=== PATIENT | female | born 1980 | race Caucasian/White ===

== ENCOUNTER 2017-02-21 08:00 | Inpatient (IN) | payer OTHER ==
[2017-02-21] MEDS ORDERED: ONDANSETRON DISINTEGRATING 4 MG TAB PO PRN (12:40)
[2017-02-21] MEDS ORDERED: NS 1,000 ML IV SCH (12:45)
[2017-02-21 14:18] LABS: % IMMATURE GRANULYOCYTES 0.5 % (0.0-1.1); ABSOLUTE IMMATURE GRANULOCYTES 0.05 10^3/uL (0.00-0.10); ADD DIFF? NO; ADD MORPH? NO; ADD SCAN? NO; ATYPICAL LYMPHOCYTE FLAG 10 (0-99); FRAGMENT RBC FLAG 0 (0-99); HEMATOCRIT 36.4 % (38.0-47.0); HEMOGLOBIN 12.3 g/dL (12.6-16.3); LEFT SHIFT FLG 0 (0-99); LIPEMIA HEMOLYSIS FLAG 90 (0-99); MEAN CELL HEMOGLOBIN 29.6 pg (27.9-34.1); MEAN CELL HEMOGLOBIN CONCENTR. 33.8 g/dL (32.4-36.7); MEAN CELL VOLUME 87.7 fL (81.5-99.8); MEAN PLATELET VOLUME 10.1 fL (8.7-11.7); PLATELET CLUMPS FLAG 0 (0-99); PLATELET COUNT 228 10^3/uL (150-400); RED BLOOD CELL COUNT 4.15 10^6/uL (4.18-5.33); RED CELL DISTRIBUTION WIDTH 13.2 % (11.5-15.2)
[2017-02-21 14:32] LABS: ANION GAP 11 mEq/L (8-16); CALCIUM 8.1 mg/dL (8.5-10.4); CARBON DIOXIDE 21 mEq/l (22-31); CHLORIDE 107 mEq/L (97-110); CREATININE 0.7 mg/dL (0.6-1.0); GLOMERULAR FILTRATION RATE > 60; GLUCOSE 113 mg/dL (70-100); POTASSIUM 3.9 mEq/L (3.5-5.2); SODIUM 139 mEq/L (134-144)
--- NOTE | 2017-02-21 14:37 | GHP ---
[f rep st] HISTORY AND PHYSICAL DATE OF ADMISSION: 02/21/2017 CHIEF COMPLAINT: Bilateral flank pain. HISTORY OF PRESENT ILLNESS: This is a 36-year-old female with a history of nephrolithiasis and urete rolithiasis since childhood, who presents after developing acute left-sided flank pain. The patient underwent imaging that confirmed the presence of bilateral ureteral stones. The patient was being ma naged on outpatient medications, but had developed right-sided pain, and in addition contacted her ou tpatient neurologist, who brought the patient in for hospitalization, pain control, and preparation f or surgical intervention. The patient denies any subjective fevers or chills. Denies nausea or vomi ting. Reports the pain. Denies constipation, diarrhea, dysuria or hematuria. Denies palpitations, shortness of breath, headache or dysphagia. PAST MEDICAL HISTORY: Recurrent nephrolithiasis. SOCIAL HISTORY: Mother of 4. No tobacco, alcohol or illicit drugs. FAMILY HISTORY: Positive for nephrolithiasis. REVIEW OF SYSTEMS: A 10-point review of systems is negative, with the exception of that reported in the HPI. PHYSICAL EXAMINATION: VITAL SIGNS: Blood pressure is 99/69, heart rate 86, respiratory rate 16, 95% on room air, temperature 36.7. GENERAL: This is a very pleasant, healthy-appearing, young female i n no acute distress. HEENT: Notable for dry mucous membranes. Eye exam is negative for any icterus . CARDIAC: The patient is regular rate and rhythm. PULMONARY: She is clear to auscultation bilate rally. GASTROINTESTINAL: Positive bowel sounds. ABDOMEN: Soft. She is nontender to palpation in all 4 quadrants. MUSCULOSKELETAL: Negative for any lower extremity edema. SKIN: Negative for any rashes. NEUROLOGIC: The patient is alert and oriented x3. PSYCHIATRIC: She is pleasant and nathaniel ative on interview and examination. DATA: The patient had CT imaging that confirmed the presence of a right proximal stone with mild hyd ronephrosis, as well as a left proximal ureteral stone with minimal hydronephrosis. Stone analysis p erformed in 2016 shows 60% calcium oxalate, 40% calcium phosphate. Creatinine last checked with her previous hospitalization was normal at 0.8. ASSESSMENT AND PLAN: This is a 36-year-old female with recurrent ureterolithiasis presenting with pa in. 1. Acute bilateral ureterolithiasis with mild hydronephrosis. Will admit. Place on IV fluids, Flom ax, pain medications, and Toradol. Creatinine is normal. The patient can eat today and will be n.p. o. after midnight tonight. With the history of recurrent urinary tract infections, we will empirical ly place her on ceftriaxone at this time per Urology's request. 2. Mild bilateral hydronephrosis. Will check renal function and plan for urologic intervention in t he morning. 3. Prophylaxis. The patient is young and ambulating. No Lovenox for surgical intervention tomorrow . 4. Diet regular, then n.p.o. after midnight. DISPOSITION: I expect less than 2 midnights if she responds well to supportive care and has a succes sful urologic procedure. I have discussed the case with Urology. Will admit in preparation for procedure tomorrow. /[id number]/MODL
[2017-02-21] MEDS: KETOROLAC 15 MG/1 ML SDV IVP SCH ×2 (16:53→22:31)
[2017-02-21] MEDS: ACETAMINOPHEN 325 MG TAB PO PRN (18:23)
[2017-02-21] MEDS ORDERED: DOCUSATE SODIUM 100 MG CAP PO ONE (19:30)
[2017-02-21] MEDS: ONDANSETRON 4 MG/2 ML VIAL IVP PRN ×2 (20:31→23:45)
[2017-02-21] MEDS: TAMSULOSIN HCL 0.4 MG CAP PO SCH (20:35)
[2017-02-21] MEDS: HYDROmorphONE/DILAUDID 1 MG/ML INJ IVP PRN ×2 (20:43→23:46)
[2017-02-21] MEDS: HYDROCODONE/APAP 5/325 TAB PO PRN (23:46)
[2017-02-22] MEDS: ACETAMINOPHEN 325 MG TAB PO PRN ×2 (03:54→17:45)
[2017-02-22] MEDS: HYDROCODONE/APAP 5/325 TAB PO PRN ×3 (03:54→17:42)
[2017-02-22] MEDS: KETOROLAC 15 MG/1 ML SDV IVP SCH ×4 (04:30→22:49)
[2017-02-22] MEDS ORDERED: LIDOCAINE 2% JELLY 20 ML (UROJECT) ONE (07:28)
[2017-02-22] MEDS ORDERED: IOPAMIDOL (ISOVUE-M 300) 15 ML VIAL ONE ×2 (07:28→09:28)
--- NOTE | 2017-02-22 07:57 | PDANEPAE ---
ANE History of Present Illness ureteroscopy for ureteral calculi. ANE Past Medical History - Cardiovascular History Hx Hypertension: No - Pulmonary History Hx COPD: No Hx Asthma/Reactive Airway Disease: No Hx Oxygen in Use at Home: No Hx Sleep Apnea: No Sleep Apnea Screening Result - Last Documented: Negative - Endocrine History Hx Diabetes: No Hypothyroid: No Obesity: no - Renal History Hx Renal Disorders: Yes Renal History Comment: nephrolythiasis - GI History GERD: no - Chronic Pain History Chronic Pain: No ANE Review of Systems Review of Systems: - Exercise capacity METS (RN): 4 METS ANE Patient History - Allergies Allergies/Adverse Reactions: morphine Allergy (Verified 02/21/17 13:14) Anxiety promethazine [From Phenergan] Allergy (Verified 02/21/17 13:14) Anxiety - Home Medications Home Medications: Cephalexin [Keflex (*)] 500 mg PO TID 02/21/17 [Last Taken 02/21/17] Herbals/Supplements -Info Only 1 ea PO DAILY 02/21/17 [Last Taken 02/21/17] Hydrocodone/Acetaminophen [[place] 5/325 (*)] 1 each PO PRN PRN 02/21/17 [Last Taken 02/21/17] Ketorolac Tromethamine [Toradol] 10 mg PO TID 02/21/17 [Last Taken 02/21/17] Ondansetron [Zofran Odt] 8 mg PO PRN PRN 02/21/17 [Last Taken Unknown] Tamsulosin HCl [Flomax 0.4 MG (*)] 0.4 mg PO HS 02/21/17 [Last Taken 02/20/17] - NPO status NPO Since - Liquids (Date): 02/22/17 NPO Since - Liquids (Time): 00:00 NPO Since - Solids (Date): 02/22/17 NPO Since - Solids (Time): 00:00 - Anes Hx Anes Hx: post operative nausea and vomiting Hx Anesthesia Complications (with details): patient has had several GA's without problems, patient had N/V after last GA which she says may also have been due to IV morphine - Smoking Hx Smoking Status: Never smoked Marijuana use: No - Alcohol Use Alcohol Use: None - Family Anes Hx Family Anes Hx: none ANE Labs/Vital Signs - Labs Result Diagrams: 02/21/17 14:02 02/21/17 14:02 - Vital Signs Blood Pressure: 106/69 Heart Rate: 97 Respiratory Rate: 16 O2 Sat (%): 94 Height: 175.26 cm Weight: 63.4 kg ANE Physical Exam - Airway Neck exam: FROM Mallampati Score: Class 3 - Pulmonary Pulmonary: clear to auscultation - Cardiovascular Cardiovascular: regular rate and rhythym - ASA Status ASA Status: II ANE Anesthesia Plan Anesthesia Plan: general endotracheal anesthesia (GA vs RA discussed. Patient prefers GA. Questions answered.)
[2017-02-22] MEDS ORDERED: SCOPOLAMINE HYDROBROMIDE 1 MG/3 DAYS PATCH TD ONE ×2 (07:58→07:59)
[2017-02-22] MEDS ORDERED: MIDAZOLAM 2 MG/2 ML VIAL IVP ONE ×2 (08:05→08:15)
[2017-02-22] MEDS ORDERED: PROPOFOL 200 MG/20 ML VIAL ONE (08:12)
[2017-02-22] MEDS ORDERED: fentaNYL 100 MCG/2 ML INJ ONE ×4 (08:13→10:37)
[2017-02-22] MEDS ORDERED: MIDAZOLAM 2 MG/2 ML VIAL ONE (08:21)
[2017-02-22] MEDS ORDERED: ONDANSETRON 4 MG/2 ML VIAL ONE (08:54)
[2017-02-22] MEDS ORDERED: DEXAMETHASONE 4 MG/ML VIAL ONE (08:54)
[2017-02-22] MEDS ORDERED: Herbals/Supplements -Info Only PO SCH (09:00)
--- NOTE | 2017-02-22 09:08 | HOSPPROG ---
Hospitalist Progress Note Assessment/Plan: # Bilateral Ureterolithiasis - s/p cystoscopy with Dr. Banda this morning. # UTI - urine culture with Klebsiella. Patient is now on Bactrim PO. # Bilateral Hydronephrosis - anticipate improvement after surgery. # Bowel/Bladder - bowel regimen if constipation develops. # DVT prophylaxis - low risk as ambulatory and with just having cystoscopy this morning I recommend holding any lovenox or heparin. # Dispo - likely today or tomorrow. Subjective: No major pain complaints. Seems to be reasonably comfortable after surgery this morning. No subjective fevers this morning but she did have them last evening. We discussed possible discharge this evening versus tomorrow morning. Objective: Vital Signs Temp Pulse Resp BP Pulse Ox 37.0 C 97 16 106/69 94 02/22/17 07:33 02/22/17 08:08 02/22/17 08:08 02/22/17 08:08 02/22/17 08:08 Laboratory Results 02/21/17 14:02 02/21/17 14:02 02/21/17 02/22/17 02/23/17 05:59 05:59 05:59 Intake Total 881 Output Total 300 Balance 881 -300 - Physical Exam Constitutional: no apparent distress, appears nourished, not in pain Cardiovascular: regular rate and rhythym, no murmur, rub, or gallop Respiratory: no respiratory distress, no rales or rhonchi, clear to auscultation Gastrointestinal: normoactive bowel sounds, soft, non-tender abdomen, no palpable masses Genitourinary: No baig in urethra ICD10 Worksheet Patient Problems: Problems Problem Status Onset Hydronephrosis Acute UTI (urinary tract infection) Acute Ureterolithiasis Acute - ICD10 Problem Qualifiers (1) Ureterolithiasis (2) Hydronephrosis Qualifiers: Hydronephrosis type: with renal calculous obstruction Qualified Code(s): N13.2 - Hydronephrosis with renal and ureteral calculous obstruction (3) UTI (urinary tract infection) Qualifiers: Urinary tract infection type: acute cystitis
[2017-02-22] MEDS ORDERED: PHENYLEPHRINE HCL 100 MCG/ML SYR ONE (09:12)
[2017-02-22] MEDS ORDERED: ROCURONIUM 50 MG/5 ML VIAL ONE (09:42)
[2017-02-22] MEDS ORDERED: KETOROLAC 30 MG/1 ML SDV ONE (09:56)
[2017-02-22] MEDS ORDERED: NEOSTIGMINE METHYLSULFATE 3 MG/3 ML SYR ONE (09:58)
[2017-02-22] MEDS ORDERED: GLYCOPYRROLATE 0.2 MG/1 ML VIAL ONE (09:58)
[2017-02-22] MEDS ORDERED: fentaNYL 100 MCG/2 ML INJ IVP PRN (10:17)
[2017-02-22] MEDS ORDERED: NALOXONE HCL 0.4 MG/ML INJ IVP PRN (10:17)
--- NOTE | 2017-02-22 10:18 | POSTOPPROG ---
Post Op Note Date of Operation: 02/22/17 Surgeon: Favian Banda (# [id number]) Anesthesia: GET(General Endotracheal) Pre-op Diagnosis: Bilateral ureterolithiasis Post-op Diagnosis: Bilateral proximal ureterolithiasis Procedure: Bilateral ureteroscopy w/ laser lithotripsy & ureteral stent placement Findings: See op note Inf/Abcess present in the surg proc area at time of surgery?: No EBL: Minimal (< 10 cc) Complications: None Drains: Other (4.7 Fr. x 24 cm left ureteral stent 4.7 Fr. x 22 cm right ureteral stent) Specimen(s): Left ureteral calculus fragment Text Box - Additional Text Additional Text: She could probably be discharged home later this afternoon if she remains afebrile. I will discharge her on Bactrim DS x 7 days (for treatment of Klebsiella UTI noted on 02/20 urine culture), [place] prn, and Uribel --- Rx's on chart. She will need to FU in my office in 2 weeks for removal of ureteral stents.
[2017-02-22] MEDS ORDERED: HYDROmorphONE/DILAUDID 1 MG/ML INJ ONE (10:37)
[2017-02-22] MEDS: HYDROmorphONE/DILAUDID 1 MG/ML INJ IVP PRN ×7 (10:41→22:24)
--- NOTE | 2017-02-22 10:42 | POSTANESTH ---
Post Anesthetic Evaluation Cardiovascular Status: Normal, Stable Respiratory Status: Normal, Stable Level of Consciousness/Mental Status: Can Participate in Eval Pain Control: Adequate, Prn Tx Ordered Nausea/Vomiting Control: Adequate, Prn Tx Ordered Complications Possibly Related to Anesthesia: None Noted
[2017-02-22] MEDS ORDERED: PHENAZOPYRIDINE HCL 200 MG TAB ONE (10:59)
[2017-02-22] MEDS: PHENAZOPYRIDINE HCL 200 MG TAB PO SCH ×3 (11:01→22:23)
--- NOTE | 2017-02-22 11:27 | GOP ---
[f rep st] OPERATIVE REPORT DATE OF OPERATION: 02/22/2017 SURGEON: Favian Banda MD ANESTHESIA: General endotracheal. PREOPERATIVE DIAGNOSIS: 1. Symptomatic bilateral proximal ureteral calculi. 2. Urinary tract infection. POSTOPERATIVE DIAGNOSIS: 1. Symptomatic bilateral proximal ureteral calculi. 2. Urinary tract infection. 3. Bilateral nephrolithiasis. PROCEDURE PERFORMED: 1. Cystourethroscopy, bilateral retrograde pyelography. 2. Left ureteroscopy with holmium laser calculus lithotripsy and basket extraction. 3. Right ureteroscopy and flexible nephroscopy with holmium laser calculus lithotripsy. 4. Bilateral ureteral stent placement (4.7-Comoran x 24 cm on left, 4.7-[place] x 22 cm on right). FINDINGS: 1. Bilateral proximal ureteral calculi. 2. Multiple remaining right renal calculi that were addressed as above. The right calyceal urothelium was also notable for multiple submucosal calcified plaques, consistent with extensive nephrocalcinosis. SPECIMENS: Left ureteral calculus fragment. INDICATIONS: This woman was admitted yesterday evening with symptoms related to intractable renal colic as well as a low-grade fever from probable UTI. She presents at this time for operative management. There has been no evidence of sepsis. The indications for the procedures as well as potential risks and complications were discussed with the patient preoperatively. She appeared to understand, her questions were answered, and she wished to proceed. Written informed surgical consent was thereafter obtained. DESCRIPTION OF PROCEDURE: The patient was brought to the operating room and administered general endotracheal anesthesia. She was carefully placed in the dorsal lithotomy position on the cystoscopic table. The genital area was sterilely prepped with Betadine scrub and paint, then draped in usual sterile fashion. Cystoscopy was performed with a 30-degree lens through a 22-Comoran sheath. Urethra and bladder were unremarkable. Ureteral orifices were normal in regard to shape and position along the trigone. A 5-Comoran open-ended ureteral catheter was used to perform retrograde pyelography on the left side. This revealed a filling defect at about the L4 level of the proximal ureter with mild proximal hydronephrosis and hydroureter. This was consistent with the location of the calculus seen on preoperative imaging. I then carefully passed a 0.035-inch hydrophilic guidewire up the left ureter until it was seen within the renal collecting system fluoroscopically. The entire length of the ureter distal to the calculus was dilated with 2 separate inflations and deflations of a 10 cm balloon by maintaining a pressure of 16 atmospheres for about 4 minutes. The balloon dilator and cystoscope were then removed while keeping the guidewire in place. Semirigid ureteroscopy was performed alongside the guidewire. The calculus was seen within the proximal ureter. A 365 micron holmium laser fiber was used to fragment this calculus into minute pieces. There was 1 dominant fragment remaining, and this was removed unremarkably with a tipless stone basket. It was sent to Pathology for chemical analysis. The ureteroscope was withdrawn, and the cystoscope was back-loaded over the guidewire. A 4.7-Comoran x 24 cm hydrophilic ureteral stent was advanced over the guidewire until it was properly positioned as seen fluoroscopically in the kidney and cystoscopically in the bladder. I then turned my attention to the right side. Retrograde pyelogram was again performed through the 5-Comoran open-ended ureteral catheter. This revealed a filling defect in about the exact same location on this side with moderate proximal hydronephrosis and hydroureter. No other obvious filling defects were appreciated. I advanced the 0.035-inch hydrophilic guidewire up the right ureter until it was seen within the renal collecting system fluoroscopically. I then dilated the entire length of the ureter distal to the calculus as was performed on the left side with a 10 cm balloon. Upon doing this, however, the stone did appear to migrate fluoroscopically from the ureter and into the kidney. After completing the balloon dilation process, the cystoscope was removed and semirigid ureteroscopy was performed alongside the guidewire. The ureteroscope was advanced to the renal pelvis, and no calculi were seen within the ureter. I then decided to proceed with flexible ureteroscopy and nephroscopy. A 0.035-inch superstiff Amplatz guidewire was advanced through the ureteroscope and into the renal collecting system. The ureteroscope was withdrawn, thereby keeping [address] Under active fluoroscopy, a 35 cm hydrophilic ureteral access sheath was advanced over the Amplatz guidewire until the proximal aspect was at the ureteropelvic junction. The inner obturator and Amplatz guidewire were then removed, thereby keeping the outer access sheath and 2nd guidewire in place. Flexible ureteroscopy was performed through the ureteral access sheath. I identified 1 dominant calculus in the renal pelvis, which was likely the calculus that was present in the ureter previously, and I ablated it with a 200 micron holmium laser fiber until no fragments were larger than approximately 1 mm. I then examined some of the remaining calyces. A few other smaller calculi were seen in at least 2 separate calices in the midpole and upper pole. I used the same 200 micron fiber to ablate these calculus fragments into minute pieces. None of these fragments were removed. They were all small enough that I felt confident they would be able to spontaneously pass around the ureteral stent. The ureteroscope and ureteral access sheath were then removed in tandem. There was minimal trauma to the ureter. The cystoscope was back-loaded over the remaining guidewire, and a 4.7-Comoran x 22 cm hydrophilic ureteral stent advanced over this guidewire until it was properly positioned as seen fluoroscopically in the kidney and cystoscopically in the bladder. The bladder was then drained of all return which was clear. The instruments were removed, and 20 cc of 2% lidocaine injected transurethrally for postoperative analgesic purposes. The patient was also given Toradol 15 mg IV at approximately 10 a.m. to also assist with postoperative analgesia. The patient was then awakened, extubated, transferred to her bed, then taken to the recovery room. She tolerated the procedure well overall. The patient was also given a dose of Rocephin 1 g IV at 0900. Her preoperative urine culture from 02/20 was actually positive for Klebsiella. COMPLICATIONS: None. DISPOSITION: She was transferred to the recovery room in stable condition. If she does well throughout the day today, namely not experiencing any symptoms or signs suggestive of advancing infection, then she can be discharged later today as per hospitalist discretion. I will have prescriptions on the chart for Bactrim DS 1 b.i.d. for 7 days (to treat her Klebsiella UTI) as well as Uribel and [place] p.r.n. pain. She should follow up in my office in 2 weeks for removal of her ureteral stents. /[id number]/MODL MTDD
--- NOTE | 2017-02-22 13:53 | ASMTCASEMG ---
Living Arrangements What is your living Answers: With Spouse arrangement? Who do you live with? Type Of Residence What kind of residence do Answers: House you live in? Case Management Evaluation Functional: Able to Answers: Yes return Home with Prior Level of Function/Care Discharge Plan Comments Coordination Status Comments Notes: Patient admitted for possible surgical intervention of Kidney stone. Case management will continue to follow. Date Signed: 02/22/2017 01:52 PM Electronically Signed By:MIGUEL Biggs
--- NOTE | 2017-02-22 13:55 | ASMTCMCOM ---
CM Note CM Note Notes: patient having surgery today for bilateral kidney stones. Probable discharge later today of tomorrow, Friday. Date Signed: 02/22/2017 01:55 PM Electronically Signed By:MIGUEL Biggs
[2017-02-22] MEDS: LORazepam 0.5 MG TAB PO PRN (16:25)
[2017-02-22] MEDS ORDERED: ERTAPENEM 1 GM in NS 100 ML IV SCH (18:30)
[2017-02-22] MEDS ORDERED: NS 1,000 ML IV ONE ×2 (18:30→21:35)
[2017-02-22 19:24] LABS: BILIRUBIN,TOTAL 0.7 mg/dL (0.1-1.4)
[2017-02-22] MEDS: ONDANSETRON 4 MG/2 ML VIAL IVP PRN (19:28)
[2017-02-22] MEDS: NS 1,000 ML IV SCH (20:20)
[2017-02-22] MEDS: TAMSULOSIN HCL 0.4 MG CAP PO SCH (20:20)
[2017-02-22] MEDS: SULFAMETHOX/TMP 800/160 MG 1 TAB PO SCH ×2 (22:23→22:49)
[2017-02-23] MEDS: ONDANSETRON 4 MG/2 ML VIAL IVP PRN ×4 (00:35→22:10)
[2017-02-23] MEDS: HYDROmorphONE/DILAUDID 1 MG/ML INJ IVP PRN ×4 (00:35→10:47)
[2017-02-23] MEDS ORDERED: NS 1,000 ML IV ONE (02:50)
[2017-02-23] MEDS: HYDROCODONE/APAP 5/325 TAB PO PRN ×3 (03:20→22:04)
--- NOTE | 2017-02-23 03:23 | HOSPPROG ---
Hospitalist Progress Note Assessment/Plan: Hospitalist Night Float Note Paged by RN regarding patient drop in BP. Has had soft SBPs 90s since arrival to floor. HR now WNL down from 100s. Patient BP apparently checked while patient receiving dose of dilaudid. no dyspnea, chest pain. some lightheadedness with ambulation to bathroom. Patient admitted for nephrolithiasis and pyelonephritis. lactate WNL. Pain not quite controlled but improved per patient. VS reviewed. Labs reviewed. Gen - NAD. patient lays in bed. appears acutely ill but nontoxic. at bedside. CV - RRR. no m/r/g. Resp - CTA-b diminished at bases. no wheezing/rhonchi/rales. Abd - mildly distended but soft. + BS. TTP mid/lower abdomen. Ext - moves all. Neuro - nonfocal. Plan - 1 liter NS bolus now. repeat BPs. If continues to decline or does not respond to fluid transfer to unit. Objective: Vital Signs Temp Pulse Resp BP Pulse Ox 36.7 C 83 14 86/59 L 97 02/23/17 02:31 02/23/17 02:31 02/23/17 02:31 02/23/17 02:31 02/23/17 02:31 Laboratory Results 02/21/17 14:02 02/21/17 14:02 02/21/17 02/22/17 02/23/17 05:59 05:59 05:59 Intake Total 881 2060 Output Total 0855 Balance 881 -295 ICD10 Worksheet Patient Problems: Problems Problem Status Onset Ureterolithiasis Acute Hydronephrosis Acute UTI (urinary tract infection) Acute
[2017-02-23] MEDS: NS 1,000 ML IV SCH ×2 (04:02→13:52)
[2017-02-23 04:46] LABS: % IMMATURE GRANULYOCYTES 1.1 % (0.0-1.1); ABSOLUTE IMMATURE GRANULOCYTES 0.09 10^3/uL (0.00-0.10); ADD DIFF? NO; ADD MORPH? NO; ADD SCAN? NO; ATYPICAL LYMPHOCYTE FLAG 0 (0-99); FRAGMENT RBC FLAG 0 (0-99); HEMATOCRIT 31.6 % (38.0-47.0); HEMOGLOBIN 10.3 g/dL (12.6-16.3); LEFT SHIFT FLG 10 (0-99); LIPEMIA HEMOLYSIS FLAG 80 (0-99); MEAN CELL HEMOGLOBIN 29.6 pg (27.9-34.1); MEAN CELL HEMOGLOBIN CONCENTR. 32.6 g/dL (32.4-36.7); MEAN CELL VOLUME 90.8 fL (81.5-99.8); MEAN PLATELET VOLUME 10.4 fL (8.7-11.7); PLATELET CLUMPS FLAG 0 (0-99); PLATELET COUNT 144 10^3/uL (150-400); RED BLOOD CELL COUNT 3.48 10^6/uL (4.18-5.33); RED CELL DISTRIBUTION WIDTH 13.3 % (11.5-15.2)
[2017-02-23 04:59] LABS: ANION GAP 9 mEq/L (8-16); CALCIUM 6.7 mg/dL (8.5-10.4); CARBON DIOXIDE 21 mEq/l (22-31); CHLORIDE 113 mEq/L (97-110); CREATININE 0.7 mg/dL (0.6-1.0); GLOMERULAR FILTRATION RATE > 60; GLUCOSE 126 mg/dL (70-100); POTASSIUM 4.2 mEq/L (3.5-5.2); SODIUM 143 mEq/L (134-144)
[2017-02-23] MEDS: KETOROLAC 15 MG/1 ML SDV IVP SCH ×4 (05:13→22:04)
[2017-02-23 05:59] LABS: IONIZED CALCIUM 1.04 MMOL/L (1.12-1.30)
[2017-02-23 06:16] LABS: ALBUMIN 2.1 g/dL (3.5-5.0); BILIRUBIN,TOTAL 0.4 mg/dL (0.1-1.4); BILIRUBIN-UNCONJUGATED 0.4 mg/dL (0.0-1.1); MAGNESIUM 1.6 mg/dL (1.6-2.3); TOTAL PROTEIN 4.1 g/dL (6.3-8.2)
--- NOTE | 2017-02-23 08:14 | PDMN ---
Medical Necessity Medical necessity: C/M review: Pt. meets INPT criteria under MCG M-300 Pyelonephritis, acute; Acute pyelonephritis, acute and persistent hypotension S/ P 02/22/2017 surgery bilateral ureteroscopy with laser lithotripsy, bilateral ureteral stent placement for bilateral proximal nephrolithiasis with hydronephrosis, postop 02/22/17 17:46 PM 39.4 temp spike, BP initially 107/73 decreased to 98/66, total 3L NS bolus given, BP 83/63 requiring transfer to ICU 02/23/2017 04:14 AM, ongoing IV NS 150 ml/hr. IV Ertapenem QD, IV Ketorolac Q 6 hrs., IV Dilaudid, frequent VS, comorbid hx recurrent nephrolithiasis. MD anticipates > 2 MN LOS for ongoing med nec for eval and TX of above.
[2017-02-23] MEDS ORDERED: PATCH REMOVAL 1 EA PATCH TD ONE (08:15)
--- NOTE | 2017-02-23 08:25 | HOSPPROG ---
Hospitalist Progress Note Assessment/Plan: DIAGNOSES: -acute sepsis with ongoing hypotension, currently ongoing fluid resuscitation -complicated urinary tract infection, mostly sensitive Klebsiella in culture -obstructive kidney stones, status post stenting PLANS: -continue ICU care -continue current fluid resuscitation and follow hemodynamics closely -will change antibiotic to rocephin Reviewed with Dr. Raj Marcos, also seen on multidisciplinary rounds Will review with Dr. Ovalle he arrived SUBJECTIVE: Still with nausea and some flank pain No dyspnea OBJECTIVE Vitals reviewed: Remains hypotensive at this time, no current fever T-max 39.4degrees, pulse good respirations good Cyber Systems Administrator, my review: Sinus rhythm Exam: alert oriented skin warm dry color ok capillary refill okay at this time resps not labored lungs clear BSs heart regular abd soft nondistended nontender, bowel sounds present limbs warm, no edema iv site ok Renal function stable Objective: Vital Signs Temp Pulse Resp BP Pulse Ox 36.8 C 74 16 82/60 L 99 02/23/17 05:18 02/23/17 06:22 02/23/17 06:00 02/23/17 06:22 02/23/17 06:22 Laboratory Results 02/23/17 04:38 02/23/17 04:38 02/22/17 02/23/17 02/24/17 06:59 06:59 06:59 Intake Total 881 2060 Output Total 300 2205 Balance 581 -145 - Time Spent With Patient Time Spent with Patient: greater than 35 minutes Time Spent with Patient: Greater than 35 minutes spent on this patients care, greater than 50% of time spent counseling, educating, and coordinating care regarding the above mentioned plan. ICD10 Worksheet Patient Problems: Problems Problem Status Onset Hydronephrosis Acute UTI (urinary tract infection) Acute Ureterolithiasis Acute
[2017-02-23] MEDS: PHENAZOPYRIDINE HCL 200 MG TAB PO SCH ×3 (08:36→22:04)
[2017-02-23] MEDS: LORazepam 0.5 MG TAB PO PRN ×2 (10:01→23:28)
[2017-02-23] MEDS: SULFAMETHOX/TMP 800/160 MG 1 TAB PO SCH ×2 (10:16→22:03)
--- NOTE | 2017-02-23 12:10 | HOSPPROG ---
Hospitalist Progress Note Assessment/Plan: ADDENDUM TO NOTE BELOW: Her BP remains fairly low despite good volume resuscitation and her NICOM shows no fluid response. Will check stat lactate and BMP DIAGNOSES: -acute sepsis with ongoing hypotension, currently ongoing fluid resuscitation -complicated urinary tract infection, mostly sensitive Klebsiella in culture -obstructive kidney stones, status post stenting PLANS: -continue ICU care -continue current fluid resuscitation and follow hemodynamics closely -will change antibiotic to rocephin Reviewed with Dr. Raj Marcos, also seen on multidisciplinary rounds Will review with Dr. Banda as he arrives SUBJECTIVE: Still with nausea and some flank pain No dyspnea OBJECTIVE Vitals reviewed: Remains hypotensive at this time, no current fever T-max 39.4degrees, pulse good respirations good Senior Principal Architect, my review: Sinus rhythm Exam: alert oriented skin warm dry color ok capillary refill okay at this time resps not labored lungs clear BSs heart regular abd soft nondistended nontender, bowel sounds present limbs warm, no edema iv site ok Renal function stable Objective: Vital Signs Temp Pulse Resp BP Pulse Ox 36.8 C 69 19 87/62 L 93 02/23/17 11:36 02/23/17 11:36 02/23/17 11:36 02/23/17 11:36 02/23/17 11:36 Laboratory Results 02/23/17 04:38 02/23/17 04:38 02/22/17 02/23/17 02/24/17 06:59 06:59 06:59 Intake Total 881 2060 Output Total 300 2205 Balance 581 -145 ICD10 Worksheet Patient Problems: Problems Problem Status Onset Hydronephrosis Acute UTI (urinary tract infection) Acute Ureterolithiasis Acute
[2017-02-23 15:24] LABS: ANION GAP 10 mEq/L (8-16); CALCIUM 6.6 mg/dL (8.5-10.4); CARBON DIOXIDE 16 mEq/l (22-31); CHLORIDE 112 mEq/L (97-110); CREATININE 0.6 mg/dL (0.6-1.0); GLOMERULAR FILTRATION RATE > 60; GLUCOSE 101 mg/dL (70-100); SODIUM 138 mEq/L (134-144)
[2017-02-23] MEDS ORDERED: MAGNESIUM HYDROXIDE 30 ML UDCUP PO PRN (17:28)
[2017-02-23] MEDS ORDERED: POLYETHYLENE GLYCOL 3350 17 GM PKT PO PRN (17:28)
[2017-02-23] MEDS ORDERED: BISACODYL 10 MG SUPP PR PRN (17:28)
[2017-02-23] MEDS ORDERED: LACTULOSE 20 GM/30 ML UDCUP PO PRN (17:28)
[2017-02-23] MEDS ORDERED: SENNOSIDES 1 TAB PO ONE (17:41)
[2017-02-23] MEDS: SENNOSIDES/DOCUSATE SODIUM TAB PO SCH (17:43)
[2017-02-23] MEDS: TAMSULOSIN HCL 0.4 MG CAP PO SCH (22:04)
[2017-02-24 04:47] LABS: % IMMATURE GRANULYOCYTES 0.8 % (0.0-1.1); ABSOLUTE IMMATURE GRANULOCYTES 0.06 10^3/uL (0.00-0.10); ADD DIFF? NO; ADD MORPH? NO; ADD SCAN? NO; ATYPICAL LYMPHOCYTE FLAG 0 (0-99); FRAGMENT RBC FLAG 0 (0-99); HEMATOCRIT 34.7 % (38.0-47.0); HEMOGLOBIN 11.2 g/dL (12.6-16.3); LEFT SHIFT FLG 10 (0-99); LIPEMIA HEMOLYSIS FLAG 80 (0-99); MEAN CELL HEMOGLOBIN CONCENTR. 32.3 g/dL (32.4-36.7); MEAN CELL VOLUME 89.9 fL (81.5-99.8); MEAN PLATELET VOLUME 10.2 fL (8.7-11.7); PLATELET CLUMPS FLAG 10 (0-99); PLATELET COUNT 159 10^3/uL (150-400); RED BLOOD CELL COUNT 3.86 10^6/uL (4.18-5.33); RED CELL DISTRIBUTION WIDTH 13.5 % (11.5-15.2)
[2017-02-24 05:08] LABS: CALCIUM 7.4 mg/dL (8.5-10.4); CARBON DIOXIDE 21 mEq/l (22-31); CHLORIDE 110 mEq/L (97-110); CREATININE 0.7 mg/dL (0.6-1.0); GLOMERULAR FILTRATION RATE > 60; GLUCOSE 73 mg/dL (70-100); SODIUM 141 mEq/L (134-144)
[2017-02-24 05:25] LABS: ANION GAP 10 mEq/L (8-16); POTASSIUM 3.6 mEq/L (3.5-5.2)
[2017-02-24] MEDS: KETOROLAC 15 MG/1 ML SDV IVP SCH ×3 (05:30→16:27)
[2017-02-24] MEDS: PHENAZOPYRIDINE HCL 200 MG TAB PO SCH ×2 (08:26→16:28)
[2017-02-24] MEDS: HYDROCODONE/APAP 5/325 TAB PO PRN (08:26)
[2017-02-24] MEDS: SENNOSIDES/DOCUSATE SODIUM TAB PO SCH (08:27)
[2017-02-24 08:33] VITALS: RESP 26
[2017-02-24] MEDS: LORazepam 0.5 MG TAB PO PRN (11:06)
[2017-02-24] MEDS: SULFAMETHOX/TMP 800/160 MG 1 TAB PO SCH (11:06)
[2017-02-24 16:03] VITALS: BP 99/58; PULSE 85; TEMP 98.9; O2SAT 90
--- NOTE | 2017-02-24 17:43 | HOSPPROG ---
Hospitalist Progress Note Assessment/Plan: DIAGNOSES: -acute sepsis with hypotension -complicated urinary tract infection, mostly sensitive Klebsiella in culture -obstructive kidney stones, status post stenting -acute hypoxemic resp failure; rales on exam suggest possible volume overload from resuscitation vs other causes PLANS: -continue rocephin -stat CXR , may need diuresis Reviewed with Dr. Dr Abreu, also seen on multidisciplinary rounds SUBJECTIVE: Still with nausea and some flank pain is notably dyspneic today OBJECTIVE Vitals reviewed: bps better, now tachypneic, no fever today Poultry And Fish Butcher, my review: Sinus rhythm Exam: alert oriented skin warm dry color ok capillary refill okay at this time resps not labored lungs some pulm rales heart regular abd soft nondistended nontender, bowel sounds present limbs warm, no edema iv site ok Renal function stable Objective: Vital Signs Temp Pulse Resp BP Pulse Ox 37.2 C 85 26 H 99/58 L 90 L 02/24/17 16:00 02/24/17 16:00 02/24/17 08:00 02/24/17 16:00 02/24/17 16:00 Microbiology 02/22/17 19:30 Urine Culture - Final Urine,Clean Catch Laboratory Results 02/24/17 04:35 02/24/17 04:35 02/23/17 02/24/17 02/25/17 06:59 06:59 06:59 Intake Total 2060 2619 Output Total 2203 2350 Balance -145 269 ICD10 Worksheet Patient Problems: Problems Problem Status Onset Hydronephrosis Acute UTI (urinary tract infection) Acute Ureterolithiasis Acute
--- NOTE | 2017-02-25 03:23 | GDS ---
[f rep st] DISCHARGE SUMMARY DIAGNOSES: 1. Acute obstructive ureteral stones. 2. Complicated urinary tract infection. 3. Acute sepsis with hypotension. 4. Mild hypoxemic respiratory failure. CONSULTATION: Favian Banda MD. PROCEDURES: Transurethral lithotripsy with stone removal and stent placement. HOSPITAL COURSE: The patient is a 36-year-old woman with past history of complicated urinary tract i nfections and stones with infections. She has had previous stent placements. She comes in at this [facility] with known obstructive uropathy, being treated with antibiotics for infection. She had outpatien t cultures showing a sensitive Klebsiella. The patient was brought in for elective stone removal wit h lithotripsy. This was done by Dr. Banda and at the time of the procedure, there were no complicat ions. However, as well, is noted that the stones were successfully tripsied and removed. Stents wer e placed. However, that night, the patient developed temperature 39.4, and hypotension with mild aci dosis. She was brought up to the intensive care unit and resuscitated vigorously, and had broader sp ectrum antibiotics for treatment intravenously. It took a full day to get her blood pressures to com e around, but there is no evidence of shock or organ injury, per se. She did well after that. There is a mild bit of hypoxemia and she appears to have some very mild basilar pulmonary edema related to fluid resuscitations. At this point, she is without any abnormal vital signs, is up in the hallways walking well, not short of breath, ambulating easily, eating well, and no other side effects or complications of therapy. S he is stable for discharge home. She will follow up with Dr. Banda in 1-2 weeks. She will have christopher oing antibiotic therapy as previous. We have asked for her to make appointment with [facility] in 1-2 weeks, as well. There is addition of Pyridium, but no other medication changes. /[id number]/MODL
[2017-02-25] MEDS ORDERED: PATCH REMOVAL 1 EA PATCH TD SCH (07:58)
--- NOTE | 2017-02-25 17:51 | ASDISCHSUM ---
Discharge Information Plan Status:Home with No Needs Medically Cleared to Leave:02/24/2017 Discharge Date:02/24/2017 08:05 PM CM D/C Disposition:Home, Routine, Self-Care ADT D/C Disposition:Home, Routine, Self-Care Projected Discharge Date:02/24/2017 12:00 AM Transportation at D/C:Family Discharge Delay Reason: Follow-Up Date:02/24/2017 12:00 AM Discharge Slot: Final Diagnosis:Bilat Kidney stones Placement Information Patient Contact Information Contact Name:ANOOP Relationship: Address:[address] Work Phone: [facility]:[place] Alternate Phone: [facility]/Zip Code:[place] [address] Email: Financial Information Financial Class:[employer] [facility] Primary Plan Desc:KERI YOUSSEF Primary Plan Number:[id number] Secondary Plan Desc: Secondary Plan Number: Assessment Information [facility] Initial CM Assessment Living Arrangements What is your living Answers: With Spouse arrangement? Who do you live with? Type Of Residence What kind of residence do Answers: House you live in? Case Management Evaluation Functional: Able to Answers: Yes return Home with Prior Level of Function/Care Discharge Plan Comments Coordination Status Comments Notes: Patient admitted for possible surgical intervention of Kidney stone. Case management will continue to follow. Date Signed: 02/22/2017 01:52 PM Electronically Signed By:MIGUEL Biggs Schuyler CM Progress Note CM Note CM Note Notes: patient having surgery today for bilateral kidney stones. Probable discharge later today of tomfriday. Date Signed: 02/22/2017 01:55 PM Electronically Signed By:MIGUEL Biggs [facility] CM Progress Note CM Note CM Note Notes: Patient discharged home with no discharge needs. Home with . Date Signed: 02/25/2017 05:50 PM Electronically Signed By:Brenda Pina LCSW Intervention Information Intervention Type:*Incorrect Registration Date of Service:02/21/2017 04:35 PM Patient Type:Inpatient Staff Member:RUSS Botello, Genevieve Hours: Discipline: Severity: Comment:
== END 2017-02-24 20:05 | disposition home or self-care (01) | DRG 853 ==
LOC: INTOOBSV 11:35 → F1N 11:35 → F2N 02-23 05:05 → OBSVTOIN 02-23 07:15
PROVIDERS: ADMIT Specialist; ATTEND Internal Medicine
PROC: 0TC78ZZ Extirpation of Matter from Left Ureter, Via Natural or Artificial Opening Endoscopic (ICD-10-PCS; principal; 2017-02-22 08:00)
PROC: 3E03329 Introduction of Other Anti-infective into Peripheral Vein, Percutaneous Approach (ICD-10-PCS; principal; 2017-02-22 08:00)
PROC: 0T788DZ Dilation of Bilateral Ureters with Intraluminal Device, Via Natural or Artificial Opening Endoscopic (ICD-10-PCS; principal; 2017-02-22 08:00)
DX: A41.50 Gram-negative sepsis, unspecified (principal); B96.1 Klebsiella pneumoniae [K. pneumoniae] as the cause of diseases classified elsewhere; N39.0 Urinary tract infection, site not specified; J96.01 Acute respiratory failure with hypoxia; N13.2 Hydronephrosis with renal and ureteral calculous obstruction; I95.9 Hypotension, unspecified; E87.2 Acidosis; Z87.442 Personal history of urinary calculi
CPT/HCPCS: 82365-90; C1726; C1758; C1769; C1894; C2625; J0696; J1100; J1170; J1335; J1885; J2250; J2370; J2405; J2704; J2710; J3010; Q9967

== ENCOUNTER → 2017-04-14 | Outpatient (CLI) | payer OTHER | LOC: FIMAGING 12:23 | PROVIDERS: ATTEND Specialist | DX: N20.0 Calculus of kidney (principal) ==